=== PATIENT | male | born 1950 | race Caucasian/White ===

== ENCOUNTER 2016-11-18 11:34 | Day surgery (SDC) | payer MEDICARE ==
[2016-11-18] MEDS ORDERED: PROPOFOL 10 MG/ML VIAL IV ONE (14:10)
[2016-11-18] MEDS ORDERED: MIDAZOLAM HCL 2MG/2ML VIAL IV ONE (14:10)
[2016-11-18] MEDS ORDERED: LIDOCAINE 2% MDV (20MG/ML) 20ML VIAL IV ONE (14:10)
--- NOTE | 2016-11-21 14:30 | Operative Note ---
DATE OF SURGERY: 11/18/2016 SURGEON: Agusto Porras MD OPERATION: COLONOSCOPY. INDICATIONS: This is a 66-year-old male with average risk for colorectal cancer who presented for screening colonoscopy. POSTOPERATIVE DIAGNOSES: 1. Left-sided colonic diverticulosis. 2. A 3 mm sessile polyp in the rectum that was removed by cold biopsy forceps. ANESTHESIA: Sedation is per Anesthesia. Pulse oximetry was monitored throughout the procedure to maintain O2 saturation of 90% or greater. Supplemental oxygen was administered via nasal cannula. Cardiac and vital signs were monitored throughout the duration of the procedure, and they were stable. The procedure of colonoscopy and risks and alternatives of the procedure, including the risk of bleeding and perforation, among others, were explained to the patient who voiced understanding and agreed to have the procedure done. Physical examination was performed, and the patient was found stable for sedation. PROCEDURE: The patient was placed in the left lateral position. Sedation was initiated. A digital rectal exam was performed and showed some mild external hemorrhoids with no palpable rectal masses. An Olympus PCF-180AL colonoscope was then inserted into the rectum under direct visualization. It was advanced to the cecum without difficulty. The ileocecal valve and appendiceal orifice were identified and photographed. The colonic mucosa was carefully examined upon introduction of the colonoscope. There were scattered diverticula noted in the sigmoid and descending colon. There were no other lesions noted. The colonoscope was then withdrawn while carefully examining the colonic mucosal surfaces. No other lesions were noted. In the rectum, retroflexion was performed and grade 1 internal hemorrhoids were noted. A 3 mm sessile polyp was noted and was removed by cold biopsy forceps. The colonoscope was then withdrawn and the procedure was terminated. The patient tolerated the procedure well without any immediate complications. He remained with stable vital signs and was transferred to the recovery room. RECOMMENDATIONS: 1. The patient should be on a high-fiber diet. 2. The patient is to have a repeat colonoscopy for surveillance in 5 or 10 years depending on the histology of the polyps. Thank you for allowing me to participate in the care of your patient. Agusto Porras MD CC: Dr. Brenden GARRETT
== END 2016-11-18 13:12 | disposition home or self-care (01) ==
LOC: HOP 11:34
PROVIDERS: ATTEND Internal Medicine Gastroenterology
DX: Z12.11 Encounter for screening for malignant neoplasm of colon (principal); K62.1 Rectal polyp; E78.00 Pure hypercholesterolemia, unspecified; K57.30 Diverticulosis of large intestine without perforation or abscess without bleeding; I10 Essential (primary) hypertension

== ENCOUNTER 2017-09-04 05:35 | Observation (INO) | payer MEDICARE ==
[2017-09-04] MEDS ORDERED: 0.9 % SODIUM CHLORIDE 1,000 ML BAG IV ONE ×2 (06:01→06:45)
[2017-09-04] MEDS ORDERED: ONDANSETRON HCL IV 4 MG/2 ML VIAL IV ONE (06:01)
[2017-09-04] MEDS ORDERED: HYDROMORPHONE HCL 1 MG/ML SYRINGE IVP ONE (06:01)
--- NOTE | 2017-09-04 06:03 | Emergency Department Record ---
History of Present Illness - General Chief Complaint: Abdominal Pain Stated Complaint: LLQ PAIN Source: Patient Mode of Arrival: Ambulatory - History of Present Illness Initial Comments: The patient states that he has had intermittent aching in his LLQ for about the last 4 days. The pain has worsened throughout the night up to an 8/10 so that he couldn't sleep. Currently his pain level is 4/10 as long as he doesn't move. He denies nausea,vomiting, diarrhea, fevers, chills. He has had a kidney stone in the past, but this doesn't feel like that. No radiation to the flank. No hematuria, dysuria. MD Complaint: Abdominal pain Onset/Timin -: Days(s) Location: LLQ Radiation: None Migration to: No migration Quality: Fullness, Other Consistency: Constant Improves With: Nothing Worsens With: Movement Associated Symptoms: Denies other symptoms - Related Data Allergies Allergy/AdvReac Type Severity Reaction Status Date / Time No Known Drug Allergies Allergy Verified 11/09/16 15:03 Travel Screening - Travel/Exposure Within Last 30 Days Have you traveled within the last 30 days?: No - Travel Symptoms Symptom Screening: None Review of Systems Reviewed: No additional complaints except as noted below Constitutional: Reports: As per HPI. Denies: Chills, Fever, Malaise, Night sweats, Weakness, Weight change Eyes: Reports: As per HPI. Denies: Eye discharge, Eye pain, Photophobia, Vision change ENT: Reports: As per HPI. Denies: Congestion, Dental pain, Ear pain, Epistaxis , Hearing loss, Throat pain Respiratory: Reports: As per HPI. Denies: Cough, Dyspnea, Hemoptysis, Stridor, Wheezes Cardiovascular: Reports: As per HPI. Denies: Arrhythmia, Chest pain, Dyspnea on exertion, Edema, Murmurs, Orthopnea, Palpitations, Paroxysmal nocturnal dyspnea, Rheumatic Fever, Syncope Endocrine: Reports: As per HPI. Denies: Fatigue, Heat or cold intolerance, Polydipsia, Polyuria Gastrointestinal: Reports: As per HPI. Denies: Abdominal pain, Constipation, Diarrhea, Hematemesis, Hematochezia, Melena, Nausea, Vomiting Genitourinary: Reports: As per HPI. Denies: Dysuria, Frequency, Hematuria, Incontinence, Retention, Testicular pain, Testicular mass, Urgency Musculoskeletal: Reports: As per HPI. Denies: Arthralgia, Back pain, Gout, Joint swelling, Myalgia, Neck pain Skin: Reports: As per HPI. Denies: Bruising, Change in color, Change in hair/ nails, Lesions, Pruritus, Rash Neurological: Reports: As per HPI. Denies: Abnormal gait, Confusion, Headache, Numbness, Paresthesias, Seizure, Tingling, Tremors, Vertigo, Weakness Psychiatric: Reports: As per HPI. Denies: Anxiety, Auditory hallucinations, Depression, Homicidal thoughts, Suicidal thoughts, Visual hallucinations Hematological/Lymphatic: Reports: As per HPI. Denies: Anemia, Blood Clots, Easy bleeding, Easy bruising, Swollen glands Past Medical History - SOCIAL HISTORY Smoking Status: Former smoker - RESPIRATORY Hx Respiratory Disorders: No - CARDIOVASCULAR Hx Cardio Disorders: Yes Hx Hypertension: Yes Comment:: high cholesterol - NEURO Hx Neuro Disorders: No - GI Hx GI Disorders: Yes Hx Diverticulitis: Yes Hx Hiatal Hernia: Yes Comment:: last colonoscopy 11/2016 - Hx Genitourinary Disorders: Yes Hx Kidney Stones: Yes - ENDOCRINE Hx Endocrine Disorders: No - MUSCULOSKELETAL Hx Musculoskeletal Disorders: No - PSYCH Hx Psych Problems: No - HEMATOLOGY/ONCOLOGY Hx Hematology/Oncology Disorders: No Family Medical History Any Significant Family History?: Yes Hx Heart Disease: Father, Brother/Sister Physical Exam - General General Appearance: Alert, Oriented x3, Cooperative, Mild distress - Head Head exam: Normal inspection - Eye Eye exam: Normal appearance, PERRL, EOMI. negative: Nystagmus Pupils: Normal accommodation - ENT ENT exam: Normal exam, Mucous membranes moist, Normal external ear exam, Normal orophraynx, TM's normal bilaterally Ear exam: Normal external inspection. negative: External canal tenderness Nasal Exam: Normal inspection. negative: Discharge, Sinus tenderness Mouth exam: Normal external inspection, Tongue normal Teeth exam: Normal inspection. negative: Dental caries Throat exam: Normal inspection. negative: Tonsillar erythema, Tonsillar exudate - Neck Neck exam: Normal inspection, Full ROM. negative: Tenderness - Respiratory Respiratory exam: Normal lung sounds bilaterally. negative: Respiratory distress - Cardiovascular Cardiovascular Exam: Regular rate, Normal rhythm, Normal heart sounds - GI/Abdominal GI/Abdominal exam: Soft, Normal bowel sounds, Distended, Guarding, Hernia, Tenderness (tender LLQ on palpation) - Rectal Rectal exam: Deferred - exam: Deferred - Extremities Extremities exam: Normal inspection, Full ROM, Normal capillary refill. negative: Calf tenderness, Pedal edema, Tenderness - Back Back exam: Reports: Normal inspection, Full ROM. Denies: CVA tenderness (R), CVA tenderness (L), Muscle spasm, Rash noted, Tenderness - Neurological Neurological exam: Alert, CN II-XII intact, Normal gait, Oriented X3, Reflexes normal. negative: Motor sensory deficit - Psychiatric Psychiatric exam: Normal affect, Normal mood - Skin Skin exam: Dry, Intact, Normal color, Warm Course Vital Signs 09/04/17 05:40 Temperature 97.9 F Pulse Rate 77 Respiratory 16 Rate Blood Pressure 150/92 Pulse Ox 97 - Reevaluation(s) Reevaluation #1: Patient declined pain medication so as to be able to drive home after his evaluation. He is aware that at shift change at [address] Guzmán will assume the remainder of his care. He is starting to drink his [id number] bottle of contrast. 09/04/17 06:44 09/04/17 06:47 Dr Guzmán assumes care at 7 a.m. Medical Decision Making - Data Complexity MDM Data: Labs Ordered and/or Reviewed (14.2 WBC with 74.6 granulocytes;BUN 25, UA pending) - Lab Data Result diagrams: 09/04/17 05:50 09/04/17 05:50 Disposition Clinical Impression: LLQ abdominal pain Quality - Quality Measures Quality Measures: N/A - Blood Pressure Screening Does Patient Have Any of the Following: No Blood Pressure Classification: Hypertensive Reading Systolic Measurement: 150 Diastolic Measurement: 92 Screening for High Blood Pressure: Patient Exclusion, Hx of HTN [G9744]
[2017-09-04 06:16] LABS: BASO % 0.2 % (0-6); EOS % 1.3 % (0-6); GRAN % 74.2 % (47-80); HEMATOCRIT 43.6 % (42.0-52.0); HEMOGLOBIN 15.1 gm/dl (14.0-18.0); LYMPH % 12.3 % (16-45); MEAN CELL VOLUME 88.1 fl (81-97); MEAN CORPUSCULAR HEMOGLOBIN 30.5 pg (27-33); MEAN CORPUSCULAR HGB CONC 34.6 g/dl (32-36); PLATELET COUNT 230 K/uL (130-400); RED BLOOD COUNT 4.95 M/uL (4.40-5.70); RED CELL DISTRIBUTION WIDTH 13.3 % (11.5-14.5); WHITE BLOOD COUNT W/O DIFF 14.2 K/uL (4.2-12.2)
[2017-09-04 06:24] LABS: BLOOD UREA NITROGEN 25 mg/dL (8-23); CREATININE 1.1 mg/dL (0.7-1.2); EST GLOMERULAR FILTRATION RATE > 60 mL/min
[2017-09-04 06:38] LABS: ALBUMIN 4.1 g/dL (4.0-5.0); ALT/SGPT 23 U/L (<41); AST/SGOT 23 U/L (10.0-50.0); BILIRUBIN,DIRECT < 0.2 mg/dL (0-0.3); GLUCOSE,RANDOM 107 mg/dL (74-109)
[2017-09-04 06:39] LABS: ALKALINE PHOSPHATASE 68 U/L (40-129); LIPASE 73 U/L (13-60)
[2017-09-04 07:13] LABS: URINE APPEARANCE CLEAR; URINE BILIRUBIN NEGATIVE (NEGATIVE); URINE BLOOD NEGATIVE (NEGATIVE); URINE COLOR YELLOW; URINE GLUCOSE (UA) NEGATIVE (NEGATIVE); URINE KETONE NEGATIVE (NEGATIVE); URINE LEUKOCYTE ESTERASE NEGATIVE (NEGATIVE); URINE NITRITE NEGATIVE (NEGATIVE); URINE PROTEIN NEGATIVE (NEGATIVE); URINE UROBILINOGEN 0.2 E.U./dL (0.20 - 1.00)
[2017-09-04] MEDS ORDERED: CIPROFLOXACIN LACTATE/D5W 400 MG/200 ML BAG IVPB ONE (09:03)
[2017-09-04] MEDS ORDERED: METRONIDAZOLE IVPB 500 MG/100 ML BAG IVPB ONE (09:04)
--- NOTE | 2017-09-04 10:27 | Emergency Department Record ---
History of Present Illness - General Chief Complaint: Abdominal Pain Stated Complaint: LLQ PAIN Time Seen by Provider: 09/04/17 06:31 Source: Patient Mode of Arrival: Ambulatory - History of Present Illness Complaint: Abdominal pain Onset/Timin -: Days(s) Location: LLQ Radiation: None Migration to: No migration Quality: Fullness, Other Consistency: Constant Improves With: Nothing Worsens With: Movement Associated Symptoms: Denies other symptoms - Related Data Allergies Allergy/AdvReac Type Severity Reaction Status Date / Time No Known Drug Allergies Allergy Verified 11/09/16 15:03 Travel Screening - Travel/Exposure Within Last 30 Days Have you traveled within the last 30 days?: No - Travel Symptoms Symptom Screening: None Review of Systems Constitutional: Reports: As per HPI. Denies: Chills, Fever, Malaise, Night sweats, Weakness, Weight change Eyes: Reports: As per HPI. Denies: Eye discharge, Eye pain, Photophobia, Vision change ENT: Reports: As per HPI. Denies: Congestion, Dental pain, Ear pain, Epistaxis , Hearing loss, Throat pain Respiratory: Reports: As per HPI. Denies: Cough, Dyspnea, Hemoptysis, Stridor, Wheezes Cardiovascular: Reports: As per HPI. Denies: Arrhythmia, Chest pain, Dyspnea on exertion, Edema, Murmurs, Orthopnea, Palpitations, Paroxysmal nocturnal dyspnea, Rheumatic Fever, Syncope Endocrine: Reports: As per HPI. Denies: Fatigue, Heat or cold intolerance, Polydipsia, Polyuria Gastrointestinal: Reports: As per HPI. Denies: Abdominal pain, Constipation, Diarrhea, Hematemesis, Hematochezia, Melena, Nausea, Vomiting Genitourinary: Reports: As per HPI. Denies: Dysuria, Frequency, Hematuria, Incontinence, Retention, Testicular pain, Testicular mass, Urgency Musculoskeletal: Reports: As per HPI. Denies: Arthralgia, Back pain, Gout, Joint swelling, Myalgia, Neck pain Skin: Reports: As per HPI. Denies: Bruising, Change in color, Change in hair/ nails, Lesions, Pruritus, Rash Neurological: Reports: As per HPI. Denies: Abnormal gait, Confusion, Headache, Numbness, Paresthesias, Seizure, Tingling, Tremors, Vertigo, Weakness Psychiatric: Reports: As per HPI. Denies: Anxiety, Auditory hallucinations, Depression, Homicidal thoughts, Suicidal thoughts, Visual hallucinations Hematological/Lymphatic: Reports: As per HPI. Denies: Anemia, Blood Clots, Easy bleeding, Easy bruising, Swollen glands Past Medical History - SOCIAL HISTORY Smoking Status: Former smoker - RESPIRATORY Hx Respiratory Disorders: No - CARDIOVASCULAR Hx Cardio Disorders: Yes Hx Hypertension: Yes Comment:: high cholesterol - NEURO Hx Neuro Disorders: No - GI Hx GI Disorders: Yes Hx Diverticulitis: Yes Hx Hiatal Hernia: Yes Comment:: last colonoscopy 11/2016 - Hx Genitourinary Disorders: Yes Hx Kidney Stones: Yes - ENDOCRINE Hx Endocrine Disorders: No - MUSCULOSKELETAL Hx Musculoskeletal Disorders: No - PSYCH Hx Psych Problems: No - HEMATOLOGY/ONCOLOGY Hx Hematology/Oncology Disorders: No Family Medical History Any Significant Family History?: Yes Hx Heart Disease: Father, Brother/Sister Course Vital Signs 09/04/17 09/04/17 09/04/17 05:40 06:50 08:50 Temperature 97.9 F Pulse Rate 77 Pulse Rate [ 68 82 Pulse Ox Probe] Respiratory 16 16 16 Rate Blood Pressure 150/92 Blood Pressure 143/88 129/81 [Left Arm] Pulse Ox 97 100 96 Medical Decision Making - Lab Data Result diagrams: 09/04/17 05:50 09/04/17 05:50 Lab Results 09/04/17 09/04/17 09/04/17 Range/Units 05:50 05:50 06:01 WBC 14.2 H (4.2-12.2) K/uL RBC 4.95 (4.40-5.70) M/uL Hgb 15.1 (14.0-18.0) gm/dl Hct 43.6 (42.0-52.0) % MCV 88.1 (81-97) fl MCH 30.5 (27-33) pg MCHC 34.6 (32-36) g/dl RDW 13.3 (11.5-14.5) % Plt Count 230 (130-400) K/uL MPV 9.0 (7.4-10.4) fl Gran % 74.2 (47-80) % Lymphocytes % 12.3 L (16-45) % Monocytes % 12.0 H (0-9) % Eosinophils % 1.3 (0-6) % Basophils % 0.2 (0-6) % Sodium 140 (136-145) mmol/L Potassium 3.9 (3.4-4.5) mmol/L Chloride 103 (98-107) mmol/L Carbon Dioxide 25.0 (22-29) mmol/L Anion Gap 12.0 (7-16) BUN 25 H (8-23) mg/dL Creatinine 1.1 (0.7-1.2) mg/dL Estimated GFR > 60 mL/min Random Glucose 107 (74-109) mg/dL Calcium 9.4 (8.8-10.2) mg/dL Total Bilirubin 1.10 H (0.2-1.0) mg/dL Direct Bilirubin < 0.2 (0-0.3) mg/dL AST 23 (10.0-50.0) U/L ALT 23 (<41) U/L Alkaline Phosphatase 68 (40-129) U/L Total Protein 7.0 (6.6-8.7) g/dL Albumin 4.1 (4.0-5.0) g/dL Lipase 73 H (13-60) U/L Urine Color Yellow Urine Appearance Clear Urine pH 6.0 (5.0-8.0) Ur Specific [place] <= 1.005 (1.002-1.030) Urine Protein Negative (NEGATIVE) Urine Glucose (UA) Negative (NEGATIVE) Urine Ketones Negative (NEGATIVE) Urine Blood Negative (NEGATIVE) Urine Nitrite Negative (NEGATIVE) Urine Bilirubin Negative (NEGATIVE) Urine Urobilinogen 0.2 (0.20 - 1.00) E.U./dL Ur Leukocyte Esterase Negative (NEGATIVE) Disposition Disposition: Admit Clinical Impression: LLQ abdominal pain, Diverticulitis Disposition: Still a Patient at [facility] Decision to Admit: Admit from ER Decision to Admit Date: 09/04/17 Decision to Admit Time: 10:19 Condition: (1) Good Forms: Patient Portal Access Quality - Quality Measures Quality Measures: N/A - Blood Pressure Screening Does Patient Have Any of the Following: No Blood Pressure Classification: Hypertensive Reading Systolic Measurement: 150 Diastolic Measurement: 92 Screening for High Blood Pressure: < First Hypertensive BP, F/U Documented > [ G8950] First Hypertensive Follow-up Interventions: Follow-up with rescreen GT 1 day and LT 4 weeks.
[2017-09-04] MEDS ORDERED: METRONIDAZOLE IVPB 500 MG/100 ML BAG IVPB SCH (11:32)
[2017-09-04] MEDS ORDERED: HYDROMORPHONE HCL 1 MG/ML SYRINGE IVP PRN (11:32)
[2017-09-04] MEDS ORDERED: CIPROFLOXACIN LACTATE/D5W 400 MG/200 ML BAG IVPB SCH (11:32)
[2017-09-04] MEDS ORDERED: ALBUTEROL HFA 8 GM INHALER INH SCH (11:32)
[2017-09-04] MEDS ORDERED: ACETAMINOPHEN 500 MG TABLET PO PRN (11:32)
[2017-09-04] MEDS ORDERED: ONDANSETRON HCL IV 4 MG/2 ML VIAL IVP PRN (11:32)
[2017-09-04] MEDS ORDERED: ALBUTEROL HFA 8 GM INHALER INH PRN (13:27)
[2017-09-04] MEDS ORDERED: QUINAPRIL HCL 10 MG TABLET PO SCH (17:00)
[2017-09-04] MEDS: METRONIDAZOLE IVPB 500 MG/100 ML BAG IVPB SCH (17:36)
[2017-09-04] MEDS: 0.9 % SODIUM CHLORIDE 1000ML 1,000 ML IV PRN (17:39)
[2017-09-04] MEDS: CIPROFLOXACIN LACTATE/D5W 400 MG/200 ML BAG IVPB SCH (18:41)
[2017-09-04] MEDS ORDERED: SIMVASTATIN 10MG TABLET PO SCH (22:00)
[2017-09-05] MEDS: METRONIDAZOLE IVPB 500 MG/100 ML BAG IVPB SCH (01:35)
[2017-09-05] MEDS: 0.9 % SODIUM CHLORIDE 1000ML 1,000 ML IV PRN (05:22)
[2017-09-05] MEDS: CIPROFLOXACIN LACTATE/D5W 400 MG/200 ML BAG IVPB SCH (06:10)
[2017-09-05 06:25] LABS: BASO % 0.3 % (0-6); EOS % 0.7 % (0-6); LYMPH % 13.6 % (16-45); MEAN CELL VOLUME 90.3 fl (81-97); MEAN CORPUSCULAR HGB CONC 33.3 g/dl (32-36); MEAN PLATELET VOLUME 8.7 fl (7.4-10.4); MONO % 11.4 % (0-9); PLATELET COUNT 199 K/uL (130-400); RED BLOOD COUNT 4.32 M/uL (4.40-5.70); RED CELL DISTRIBUTION WIDTH 13.3 % (11.5-14.5); WHITE BLOOD COUNT W/O DIFF 11.7 K/uL (4.2-12.2)
[2017-09-05] MEDS ORDERED: METRONIDAZOLE 250 MG TABLET PO SCH (07:30)
--- NOTE | 2017-09-05 07:37 | Discharge Note ---
VTE H&P Assessment - Risk for VTE Risk for VTE: No Risk Level: Very Low Risk Assessment Date: 09/04/17 Risk Assessment Time: 16:00 VTE Orders Placed or Will Be Placed: No VTE Reason for No Prophylaxis: Not Indicated Discharge Medications - Discharge Medications Prescriptions: Ciprofloxacin HCl [Cipro] 500 mg PO Q12HR #20 tablet Hydrocodone/Acetaminophen [[place] 5mg/325mg] 1 tab PO Q6H PRN #14 tab PRN Reason: Pain - General Metronidazole [Flagyl] 500 mg PO TID #30 tablet Home Medications: Ambulatory Orders Aspirin [Aspirin EC] 81 mg PO DAILY 05/09/15 [Last Taken 05/08/15] Lovastatin 20 mg PO QHS 05/09/15 [Last Taken 05/08/15] Quinapril HCl [Accupril] 10 mg PO QPM 05/09/15 [Last Taken 05/08/15] Ascorbic Acid [Vitamin C] 1,500 mg PO DAILY tab 05/17/16 [Last Taken Unknown] Multivitamin [Multi-Vitamin Daily] 1 each PO DAILY tab 05/17/16 [Last Taken Unknown] [place]-3 Fatty Acids/Fish Oil [Fish Oil 1,000 mg Capsule] 1 cap PO QD cap [Last Taken Unknown] Zinc Gluconate 100 mg PO DAILY tab 05/17/16 [Last Taken Unknown] Ciprofloxacin HCl [Cipro] 500 mg PO Q12HR #20 tablet 09/05/17 [Last Taken Unknown] Hydrocodone/Acetaminophen [[place] 5mg/325mg] 1 tab PO Q6H PRN #14 tab 09/05/17 [ Last Taken Unknown] Metronidazole [Flagyl] 500 mg PO TID #30 tablet 09/05/17 [Last Taken Unknown] Discharge Note - Date Date of Discharge Note: 09/05/17 Disposition: Home, Self-Care Condition: (1) Good Additional Instructions: low fiber diet for 4 weeks than high fiber diet follow up with Dr. Howell in 6 days mondaySeptember 11 Forms: Patient Portal Access Activity at Discharge: Increase Activity as Tolerated Diet at Discharge: Other (low fiber diet)
--- NOTE | 2017-09-05 07:38 | CT SCAN REPORT ---
EXAM: CT SCAN OF THE ABDOMEN AND PELVIS WITH CONTRAST HISTORY: LEFT LOWER ABDOMINAL PAIN FOR THE PAST THREE DAYS. TECHNIQUE: Standard CT imaging of the abdomen and pelvis was performed with contrast. 100 ml of Omnipaque 300 were administered. Comparison: 12/17/15. FINDINGS: Dependent atelectasis is present at both lung bases. A small hiatal hernia is present. Small cysts are present within the right hepatic lobe and are unchanged. The gallbladder, biliary tree, pancreas, spleen, and adrenal glands are normal. There are small cysts and nonobstructing stones within both kidneys. The largest stone within each kidney measures 3 mm in maximal dimension. There is no obstructing calculus or hydronephrosis. The ureters and urinary bladder are normal. The aorta is normal in caliber. There is no retroperitoneal lymphadenopathy. There are numerous diverticula within the descending and sigmoid colon regions with a few other scattered diverticula throughout the remainder of the colon. There is focal wall thickening within the sigmoid region with adjacent fat stranding consistent with acute diverticulitis. There is no abscess or pneumoperitoneum. The small bowel loops are normal in caliber. There is no ascites. The prostate gland is upper normal in size. There are no acute osseous abnormalities. Degenerative changes are present within the spine. IMPRESSION: 1. ACUTE DIVERTICULITIS OF THE SIGMOID COLON WITH NO EVIDENCE FOR ABSCESS OR PNEUMOPERITONEUM. 2. NONOBSTRUCTING INTRARENAL CALCULI BILATERALLY. 3. STABLE HEPATIC AND BILATERAL RENAL CYSTS. 4. SMALL HIATAL HERNIA. JOB NUMBER: [id number] MTDD
[2017-09-05] MEDS ORDERED: ALBUTEROL HFA 8 GM INHALER INH PRN (08:15)
[2017-09-05] MEDS ORDERED: ASPIRIN 81 MG TABEC PO SCH (10:00)
[2017-09-05] MEDS ORDERED: CIPROFLOXACIN HCL 500 MG TABLET PO SCH (10:00)
--- NOTE | 2017-09-05 13:20 | Discharge Summary ---
DATE OF DISCHARGE: 09/05/2017 DISCHARGE DIAGNOSES: 1. Acute diverticulitis. 2. Abdominal pain, left lower quadrant. 3. History of hypercholesterolemia. 4. History of hypertension. ATTENDING PHYSICIAN: Louie Howell D.O. REASON FOR HOSPITALIZATION: This 67-year-old male presented to the emergency department with abdominal pain, evaluated by Dr. Guzmán, and diagnosed with diverticulitis. He had a CT scan, which showed diverticulitis in the sigmoid colon but no perforation or abscess seen. Patient stated the pain started 2-3 days prior to admission. He had 1 loose stool after admission in the emergency department, no vomiting, eating without any difficulties. The pain has improved since admission. SIGNIFICANT FINDINGS FROM EXAMINATION: CT scan revealed sigmoid diverticulitis without any perforation or abscess formation. White count initially in the emergency department was 14,200 and dropped down to 11,700; hemoglobin was 13. Urine was negative. BUN was 25, creatinine 1.1. Potassium was 3.9. THERAPY PROVIDED: Patient was started on IV Cipro and IV Flagyl. He is feeling much better at this point. He is walking around the room without difficulties, and he is feeling so much better he would like to go home. HOSPITAL COURSE: Improved. We will switch over to oral antibiotics and discharge the patient. CONDITION AT DISCHARGE: Much improved. DISCHARGE INSTRUCTIONS: Follow up with Dr. Howell in 6 days on 09/11/2017 for a recheck of his abdomen. Flagyl 500 mg t.i.d. for 10 days, Cipro 500 mg b.i.d. for 10 days, and a low-fiber diet for 4 weeks and then high-fiber diet after that. MTDD
--- NOTE | 2017-09-05 13:20 | History and Physical Report ---
DATE OF ADMISSION: 09/04/2017 Surgeon: Louie Howell DO CHIEF COMPLAINT: Left lower quadrant abdominal pain. HISTORY OF PRESENT ILLNESS: This 67-year-old male stated that about 2 to 3 days prior to coming to the ER this morning, he had left lower quadrant abdominal pain, felt like his diverticulitis or kidney stones that he had; diverticulitis 2 years ago and kidney stones prior to that. He was evaluated by Dr. Guzmán and diagnosed with acute diverticulitis by CAT scan in the sigmoid colon. His white count was 14,200. He is eating fine. He does have pain in the left lower quadrant and he denies any diarrhea. PAST MEDICAL HISTORY: Diverticulitis 2 years ago, colonoscopy this year which was negative. He has had hypertension, hypercholesterolemia, and kidney stones. PAST SURGICAL HISTORY: Lithotripsy, appendectomy, and hernia repair 1994. MEDICATIONS ON ADMISSION: 1. ProAir 2 puffs q.4h. 2. Lovastatin 20 mg at bedtime. 3. Calcium. 4. Polycarbophil, which is fiber, 625 daily. 5. Aspirin 81 mg daily. 6. Vitamin C 59 mg daily. 7. Zinc 100 mg daily. 8. Accupril 10 mg daily. 9. [place] 3 fatty acids 1 daily. 10. Multivitamin 1 daily. 11. Apple cider vinegar daily 1 tablespoon. ALLERGIES: No known drug allergies. FAMILY PSYCHOSOCIAL HISTORY: Father had heart disease. Brother and sister had heart disease. He is a former smoker; he quit in 1969. No alcohol or drug use. REVIEW OF SYSTEMS: HEENT: No upper respiratory infectious symptoms, no diplopia, blurred vision, tinnitus, decreased hearing, headaches, dizziness, ear pain, trouble swallowing, epistaxis, pruritus of the eyes or nose, facial pain, double vision, or visual loss. CARDIOVASCULAR: No chest pain, palpitations, or arrhythmias. RESPIRATORY: No cough, cold, or congestion. GASTROINTESTINAL: See chief complaint. He has pain in the left lower quadrant. No vomiting, no diarrhea. GENITOURINARY: No dysuria, hematuria, or frequency or burning on urination. MUSCULOSKELETAL: No joint or bone abnormalities. NEUROLOGIC: No CVA paralysis or paresthesias. ENDOCRINE: He has no diabetes or thyroid disease. INTEGUMENT: No rash, ulcer changes, no yellow skin. PHYSICAL EXAMINATION: GENERAL: Height is 5 feet 8 inches, weight is 190 pounds. VITAL SIGNS: Temperature 97.5, pulse is 71, blood pressure is 116/69, respiratory rate is 20, pulse OX is 97% on room air. HEENT: Pupils are equal, round, and reactive to light and accomodation. Extraocular muscles intact. Throat is clear. Nose is clear. Tympanic membranes are [place]. NECK: Supple. No jugular venous distention, no hepatojugular reflux, no carotid bruits. Thyroid is smooth. CARDIOVASCULAR: Regular rate and rhythm without murmurs, clicks, rubs, or gallops. RESPIRATORY: Clear to auscultation and percussion. ABDOMEN: Pain in the left lower quadrant. Some guarding. No rebound or rigidity. Bowel sounds are present. EXTREMITIES: No pitting edema, no cyanosis, no clubbing. Full range of motion, peripheral pulses are good. BREASTS: Normal male breasts. RECTAL: Deferred. GENITALIA: Deferred. NEUROLOGIC: Cranial nerves 2 through 12 intact. No gross defects. Sensation normal, strength normal, deep tendon reflexes equal bilaterally. Babinski's is negative. MENTAL STATUS: Alert and oriented x 3. IMPRESSION: 1. Acute diverticulitis. 2. Abdominal pain left lower quadrant. 3. History of diverticulitis. 4. History of hypertension. 5. History of hypercholesterolemia. PLAN: 1. IV Flagyl. 2. IV Cipro. 3. Pain control. 4. IV fluids. MTDD
== END 2017-09-05 10:40 | disposition home or self-care (01) ==
LOC: ER 05:35 → MEDSURG 11:24 → INTOOBSV 11:24
PROVIDERS: ADMIT Emergency Medicine; ATTEND Emergency Medicine
DX: K57.32 Diverticulitis of large intestine without perforation or abscess without bleeding (principal); I10 Essential (primary) hypertension; E78.00 Pure hypercholesterolemia, unspecified; K44.9 Diaphragmatic hernia without obstruction or gangrene
CPT/HCPCS: 74177; 80048; 80076; 81003; 83690; 85025; 96365; 96366; 96375; 99220; 99223; 99285; J1170; J2405; J7030

== ENCOUNTER 2018-02-11 06:43 | Emergency (ER) | payer MEDICARE ==
--- NOTE | 2018-02-11 07:35 | Emergency Department Record ---
History of Present Illness - General Chief Complaint: Abdominal Pain Stated Complaint: ABD PAIN LLQ Time Seen by Provider: 02/11/18 07:19 Source: Patient, RN notes reviewed Mode of Arrival: Ambulatory - History of Present Illness Initial Comments: LLQ abdominal pain and he had episodes two other times this year and november. No vomiting and no fever or chills. Onset/Timin -: Days(s) Severity: Mild Severity scale (1-10): 3 Quality: Cramping - Related Data Previous Rx's Medication Instructions Recorded Ciprofloxacin HCl [Cipro] 500 mg PO Q12HR #20 tablet 02/11/18 Metronidazole [Flagyl] 500 mg PO TID #30 tablet 02/11/18 Allergies Allergy/AdvReac Type Severity Reaction Status Date / Time No Known Drug Allergies Allergy Unverified 02/11/18 07:00 Travel Screening - Travel/Exposure Within Last 30 Days Have you traveled within the last 30 days?: No - Travel/Exposure Within Last Year Have you traveled outside the [place] in the last year?: No - Additonal Travel Details Have you been exposed to anyone with a communicable illness?: No - Travel Symptoms Symptom Screening: None Review of Systems Reviewed: No additional complaints except as noted below Constitutional: Reports: As per HPI. Denies: Chills, Fever, Malaise, Night sweats, Weakness, Weight change Eyes: Reports: As per HPI. Denies: Eye discharge, Eye pain, Photophobia, Vision change ENT: Reports: As per HPI. Denies: Congestion, Dental pain, Ear pain, Epistaxis , Hearing loss, Throat pain Respiratory: Reports: As per HPI. Denies: Cough, Dyspnea, Hemoptysis, Stridor, Wheezes Cardiovascular: Reports: As per HPI. Denies: Arrhythmia, Chest pain, Dyspnea on exertion, Edema, Murmurs, Orthopnea, Palpitations, Paroxysmal nocturnal dyspnea, Rheumatic Fever, Syncope Endocrine: Reports: As per HPI. Denies: Fatigue, Heat or cold intolerance, Polydipsia, Polyuria Gastrointestinal: Reports: As per HPI, Abdominal pain (LLQ). Denies: Constipation, Diarrhea, Hematemesis, Hematochezia, Melena, Nausea, Vomiting Genitourinary: Reports: As per HPI. Denies: Dysuria, Frequency, Hematuria, Incontinence, Retention, Testicular pain, Testicular mass, Urgency Musculoskeletal: Reports: As per HPI. Denies: Arthralgia, Back pain, Gout, Joint swelling, Myalgia, Neck pain Skin: Reports: As per HPI. Denies: Bruising, Change in color, Change in hair/ nails, Lesions, Pruritus, Rash Neurological: Reports: As per HPI. Denies: Abnormal gait, Confusion, Headache, Numbness, Paresthesias, Seizure, Tingling, Tremors, Vertigo, Weakness Psychiatric: Reports: As per HPI. Denies: Anxiety, Auditory hallucinations, Depression, Homicidal thoughts, Suicidal thoughts, Visual hallucinations Hematological/Lymphatic: Reports: As per HPI. Denies: Anemia, Blood Clots, Easy bleeding, Easy bruising, Swollen glands Past Medical History - SOCIAL HISTORY Smoking Status: Former smoker Alcohol Use: None Drug Use: None - RESPIRATORY Hx Respiratory Disorders: No - CARDIOVASCULAR Hx Cardio Disorders: Yes Hx Hypertension: Yes Comment:: high cholesterol - NEURO Hx Neuro Disorders: No - GI Hx GI Disorders: Yes Hx Diverticulitis: Yes Hx Hiatal Hernia: Yes Comment:: last colonoscopy 11/2016 - Hx Genitourinary Disorders: Yes Hx Kidney Stones: Yes - ENDOCRINE Hx Endocrine Disorders: No - MUSCULOSKELETAL Hx Musculoskeletal Disorders: No - PSYCH Hx Psych Problems: No - HEMATOLOGY/ONCOLOGY Hx Hematology/Oncology Disorders: No Family Medical History Any Significant Family History?: No Hx Heart Disease: Father, Brother/Sister Hx HTN: Father, Brother/Sister Physical Exam - General General Appearance: Alert, Oriented x3, Cooperative, No acute distress - Head Head exam: Normal inspection - Eye Eye exam: Normal appearance, PERRL Pupils: Normal accommodation - ENT ENT exam: Normal exam, Mucous membranes moist, Normal external ear exam, Normal orophraynx, TM's normal bilaterally Ear exam: Normal external inspection. negative: External canal tenderness Nasal Exam: Normal inspection. negative: Discharge, Sinus tenderness Mouth exam: Normal external inspection, Tongue normal Teeth exam: Normal inspection. negative: Dental caries Throat exam: Normal inspection. negative: Tonsillar erythema, Tonsillar exudate - Neck Neck exam: Normal inspection, Full ROM. negative: Tenderness - Respiratory Respiratory exam: Normal lung sounds bilaterally. negative: Respiratory distress - Cardiovascular Cardiovascular Exam: Regular rate, Normal rhythm, Normal heart sounds - GI/Abdominal GI/Abdominal exam: Soft, Normal bowel sounds, Tenderness (LLQ pain). negative: Distended, Guarding, Rebound, Rigid - Rectal Rectal exam: Deferred - exam: Deferred - Extremities Extremities exam: Normal inspection, Full ROM, Normal capillary refill. negative: Tenderness - Back Back exam: Reports: Normal inspection, Full ROM. Denies: Muscle spasm, Rash noted, Tenderness - Neurological Neurological exam: Alert, Normal gait, Oriented X3, Reflexes normal - Psychiatric Psychiatric exam: Normal affect, Normal mood - Skin Skin exam: Dry, Intact, Normal color, Warm Course Vital Signs 02/11/18 06:53 Temperature 98.6 F Pulse Rate 78 Respiratory 20 Rate Blood Pressure 129/84 Pulse Ox 96 - Reevaluation(s) Reevaluation #1: patient states he only wants to use tylenol for pain 02/11/18 08:36 Medical Decision Making - Data Complexity MDM Data: Labs Ordered and/or Reviewed (WBC 13,100), X-Ray Ordered and/or Reviewed (diverticulitis without abscess) - Lab Data Result diagrams: 02/11/18 07:32 02/11/18 07:32 Disposition Clinical Impression: Diverticulitis Abdominal pain Qualifiers: Abdominal location: left lower quadrant Qualified Code(s): R10.32 - Left lower quadrant pain Disposition: Home, Self-Care Condition: (1) Good Instructions: Diverticulitis (ED) Additional Instructions: follow up with Dr. Howell as scheduled Prescriptions: Ciprofloxacin HCl [Cipro] 500 mg PO Q12HR #20 tablet Metronidazole [Flagyl] 500 mg PO TID #30 tablet Forms: Patient Portal Access Time of Disposition: 08:37 Quality - Quality Measures Quality Measures: N/A - Blood Pressure Screening Does Patient Have Any of the Following: No Blood Pressure Classification: Pre-Hypertensive BP Reading Systolic Measurement: 129 Diastolic Measurement: 84 Screening for High Blood Pressure: < Pre-Hypertensive BP, F/U Documented > [ [id number]] Pre-Hypertensive Follow-up Interventions: Referral to alternative/primary care provider.
[2018-02-11] MEDS: 0.9 % SODIUM CHLORIDE 1000ML 1,000 ML IV PRN (07:45)
[2018-02-11 07:59] LABS: BASO % 0.2 % (0-6); EOS % 0.6 % (0-6); GRAN % 74.7 % (47-80); HEMATOCRIT 42.2 % (42.0-52.0); HEMOGLOBIN 14.5 gm/dl (14.0-18.0); LYMPH % 11.3 % (16-45); MEAN CELL VOLUME 90.6 fl (81-97); MEAN CORPUSCULAR HEMOGLOBIN 31.1 pg (27-33); MEAN CORPUSCULAR HGB CONC 34.4 g/dl (32-36); MEAN PLATELET VOLUME 8.8 fl (7.4-10.4); MONO % 13.2 % (0-9); PLATELET COUNT 251 K/uL (130-400); RED BLOOD COUNT 4.66 M/uL (4.40-5.70); RED CELL DISTRIBUTION WIDTH 13.2 % (11.5-14.5); WHITE BLOOD COUNT W/O DIFF 13.1 K/uL (4.2-12.2)
[2018-02-11 08:10] LABS: BLOOD UREA NITROGEN 17 mg/dL (8-23)
[2018-02-11 08:11] LABS: EST GLOMERULAR FILTRATION RATE > 60 mL/min
[2018-02-11 08:13] LABS: GLUCOSE,RANDOM 117 mg/dL (74-109)
[2018-02-11 08:16] LABS: LIPASE 38 U/L (13-60)
[2018-02-11] MEDS ORDERED: LEVOFLOXACIN 500 MG TABLET PO ONE (08:27)
[2018-02-11] MEDS: CIPROFLOXACIN HCL 500 MG TABLET PO ONE (08:37)
[2018-02-11] MEDS: METRONIDAZOLE 250 MG TABLET PO ONE (08:37)
--- NOTE | 2018-02-12 10:29 | CT SCAN REPORT ---
EXAM: CT OF THE ABDOMEN AND PELVIS WITHOUT CONTRAST HISTORY: LEFT LOWER QUADRANT PAIN. TECHNIQUE: CT of the abdomen and pelvis was performed without oral or IV contrast. This limits evaluation of bowel and solid visceral organs. Comparison: Prior CT from 09/04/17. FINDINGS: Limited evaluation of the lung bases is unremarkable. The osseous structures are grossly intact. Small hiatal hernia. Limited evaluation of the liver demonstrates what is likely a hemangioma or cyst in the right hepatic lobe posteriorly, unchanged. The spleen, adrenal glands, and pancreas are unremarkable. The gallbladder is present. Multiple punctate nonobstructing renal calculi bilaterally. No hydronephrosis or obstructing calculus. Several left renal cysts are suggested. There is a large amount of stool in the colon. There is sigmoid diverticulosis. In addition, there is surrounding inflammatory change with wall thickening of the sigmoid colon consistent with acute diverticulitis. No discreet abscess. No free air or free fluid. Enlargement of the prostate. Correlate with PSA levels. IMPRESSION: 1. ACUTE SIGMOID DIVERTICULITIS. NO ABSCESS OR FREE AIR. 2. MULTIPLE OTHER NONEMERGENT FINDINGS, ABOVE. JOB NUMBER: [id number] [facility]
== END 2018-02-11 08:46 | disposition home or self-care (01) ==
LOC: ER 06:43
DX: K57.92 Diverticulitis of intestine, part unspecified, without perforation or abscess without bleeding (principal); R10.32 Left lower quadrant pain; I10 Essential (primary) hypertension; Z87.891 Personal history of nicotine dependence
CPT/HCPCS: 74176; 80048; 83690; 85025; 99284

== ENCOUNTER 2018-06-08 10:29 | Day surgery (SDC) | payer MEDICARE ==
[2018-06-08] MEDS ORDERED: MIDAZOLAM HCL 2MG/2ML VIAL IV ONE (10:30)
[2018-06-08] MEDS ORDERED: PROPOFOL 10 MG/ML VIAL IV ONE (10:30)
[2018-06-08] MEDS ORDERED: LIDOCAINE 2% MDV (20MG/ML) 20ML VIAL IV ONE (10:30)
--- NOTE | 2018-06-28 16:40 | Operative Note ---
DATE OF SERVICE: 06/08/2018. DATE OF SURGERY: 06/08/2018. REQUESTING PROVIDER: Louie Howell DO. Surgeon: Agusto Porras MD. POSTOPERATIVE DIAGNOSES: 1. Left-sided colonic diverticulosis. 2. Otherwise normal colon and terminal ileum. OPERATION: COLONOSCOPY. Indication for Procedure: This is a 68-year-old male with history of diverticular disease, who presented for colonoscopy. SEDATION: Sedation is per Anesthesia. Pulse oximetry was monitored throughout the duration of the procedure to maintain O2 saturation of 90% or greater. Supplemental oxygen was administered via nasal cannula. Cardiac and vital signs were monitored throughout the duration of the procedure and they were stable. PROCEDURE: The procedure of colonoscopy, risks and alternatives to the procedure, including the risks of bleeding and perforation among others, were explained to the patient. He voiced understanding and agrees to have the procedure done. Physical examination was performed and the patient was found stable for sedation. The patient was then placed in the left lateral position and sedation was initiated. Digital rectal exam was performed and showed small external hemorrhoids with no palpable rectal masses. A lubricated Olympus [id number] colonoscope was then inserted into the rectum and under direct visualization was advanced to the cecum without difficulty. The ileocecal valve and appendiceal orifice were identified and photographed. The colonic mucosa was carefully examined upon introduction of the colonoscope. There were scattered diverticula noted in the sigmoid and descending colon. There were no other lesions noted. The ileocecal valve was intubated and terminal ileal mucosa was inspected for about 10 cm and appeared normal. The colonoscope was then withdrawn very carefully, re-examining the colonic mucosal surfaces. No lesions were noted. In the rectum, retroflexion maneuver was performed and Grade 1 internal hemorrhoids were noted. The colonoscope was then withdrawn and the procedure was terminated. The patient tolerated the procedure well without immediate complications. He remained in stable vital signs and was transferred into the Recovery Room. PLAN AND RECOMMENDATIONS: 1. Patient is to be on a high-fiber diet. 2. He is to have repeat colonoscopy for screening in 10 years.Thank you for allowing me to participate in the care of your patient. CC: MD Louie Mora DO MTDD
== END 2018-06-08 12:17 | disposition home or self-care (01) ==
LOC: HOP 10:29
PROVIDERS: ATTEND Internal Medicine Gastroenterology
DX: Z12.11 Encounter for screening for malignant neoplasm of colon (principal); K57.30 Diverticulosis of large intestine without perforation or abscess without bleeding; I10 Essential (primary) hypertension; E78.00 Pure hypercholesterolemia, unspecified
CPT/HCPCS: 00812; G0121